=== PATIENT | male | born 1980 | race Caucasian/White ===

== ENCOUNTER 2018-05-23 21:34 | Emergency (ER) | payer OTHER ==
[~2018-05-23] VITALS: Ht 175.3 cm; Wt 103.3 kg
[2018-05-23 21:37] VITALS: BP 163/100; PULSE 79; RESP 19; Ht 175.3 cm; Wt 103.3 kg
[2018-05-24] MEDS ORDERED: KETOROLAC 60 MG INJ IM STA (01:56)
[2018-05-24] MEDS ORDERED: IBUP-1542 PO (01:58)
[2018-05-24] MEDS ORDERED: HYDR-4011 PO (01:58)
--- NOTE | 2018-05-24 02:17 | ERD ---
ER Documentation Chief Complaint Chief Complaint HEAD AND NECK PAIN [id number] ON/OFF HPI 31 several male presents with complaint of upper neck and lower head pain intermittent for the past 2 months. States that the headache is mostly on the left side of the head. States that his CT was done 1 month ago and the results within normal limits. States his been taking [id number] treatment is not sure what is called. Denies sudden onset, worse headache of life, fever, , rash, headache getting worse with change in position, headache initiated by exertion, MAHARAJ worse in the morning, MAHARAJ waking up patient at night, new neurological deficits, numbness, weakness, vision problems, tenderness to pal pation over temporal area, history of trauma, or possibility of CO2 poisoning. Denies past medical history. Denies allergies. Denies surgeries. Joesph alcohol, tobacco, drug use. Up to date on vaccines. ROS All systems reviewed and are negative except as per history of present illness. Medications Home Meds Active Scripts Hydrocodone/Acetaminophen ([place] 5-325 Tablet) 1 Each Tablet, 1 TAB PO Q6H PRN for PAIN, #10 TAB Prov:LOU GUIDRY 05/24/18 Ibuprofen* (Motrin*) 600 Mg Tab, 600 MG PO Q6 for headache, #30 TAB Prov:OLU GUIDRY 05/24/18 PMhx/Soc Medical and Surgical Hx: pt denies Medical Hx, pt denies Surgical Hx Hx Alcohol Use: No Hx Substance Use: No Hx Tobacco Use: Yes Smoking Status: Current every day smoker FmHx Family History: No diabetes, No coronary disease, No other Physical Exam Vitals Vital Signs Date Temp Pulse Resp B/P (MAP) Pulse Ox O2 O2 Flow FiO2 Time Delivery Rate 05/23/18 97.2 79 19 163/100 98 21:37 (121) Physical Exam Const: No acute distress Head: Atraumatic Eyes: Normal Conjunctiva. PERRLA. EOMs intact. ENT: Normal External Ears, Nose and Mouth. Neck: Full range of motion. No meningismus. Resp: Clear to auscultation bilaterally Cardio: Regular rate and rhythm, no murmurs Abd: Soft, non tender, non distended. Normal bowel sounds Skin: No petechiae or rashes Back: No midline or flank tenderness Ext: No cyanosis, or edema Neur: Awake and alert Psych: Normal Mood and Affect Neuro: M/S: Alert and oriented Face: EOMI, face and pharynx with normal sensation and function Motor: Normal strength throughout Sensation: Normal sensation throughout Speech: Normal Cerebel: Normal coordination Normal gait Normal finger to nose DTR: 2+ and symmetric upper/lower extremities Results 24 hrs Current Medications Medications Dose Sig/Fito Start Time Status Last (Trade) Ordered Route PRN Stop Time Admin Dose Reason Admin Ketorolac 60 mg ONCE STAT 05/24/18 DC 05/24/18 Tromethamine IM 01:56 02:01 (Toradol) 05/24/18 01:57 Procedures/MDM Patient's presentation is consistent with tension headaches. I advised patient that there is no indication for repeat CT at this time especially considering one was just taken 1 month ago and the results within normal limits. I also spent the patient that this needs to be managed with his physician on outpatient basis. Patient given Toradol in the ER discharged with ibuprofen and short course of [place] for breakthrough pain. I have low suspicion for intracranial hemorrhage, carotid dissection, elevated intracranial pressure, intracranial mass, aneurysm, meningitis, malignant hypertension, giant cell arteritis, carotid dissection, intracranial abscess, cerebral venous thrombosis, CO2 poisoning, or other emergent causes of headache based on patients history and exam. Patient discharged with strict ER precautions. Patient advised to follow up with PMD. All questions answered at discharge. Departure Diagnosis: Primary Impression: Tension headache Condition: Stable Patient Instructions: Tension Headaches, Self-Care for Headaches, Preventing Tension-type Headaches , Managing Tension-type Headache Symptoms Referrals: [facility] YOU HAVE RECEIVED A MEDICAL SCREENING EXAM AND THE RESULTS INDICATE THAT YOU DO NOT HAVE A CONDITION THAT REQUIRES URGENT TREATMENT IN THE EMERGENCY DEPARTMENT. FURTHER EVALUATION AND TREATMENT OF YOUR CONDITION CAN WAIT UNTIL YOU ARE SEEN IN YOUR DOCTORS OFFICE WITHIN THE NEXT 1-2 DAYS. IT IS YOUR RESPONSIBILITY TO MAKE AN APPOINTMENT FOR FOLOW-UP CARE. IF YOU HAVE A PRIMARY DOCTOR --you should call your primary doctor and schedule an appointment IF YOU DO NOT HAVE A PRIMARY DOCTOR YOU CAN CALL OUR PHYSICIAN REFERRAL HOTLINE AT IF YOU CAN NOT AFFORD TO SEE A PHYSICIAN YOU CAN CHOSE FROM THE FOLLOWING [facility] [address] [facility]. [facility] [address] [facility]. [facility] [address] [facility]. [facility] [address] [facility] [address] [facility]. [facility] [address] Additional Instructions: FOLLOW UP WITH YOUR PRIMARY CARE PHYSICIAN TOMORROW.Return to this facility if you are not improving as expected. LOU GUIDRY May 24, 2018 02:17
== END 2018-05-24 03:02 | disposition home or self-care (01) ==
LOC: FTE 21:34
DX: G44.209 Tension-type headache, unspecified, not intractable (principal); F17.210 Nicotine dependence, cigarettes, uncomplicated
CPT/HCPCS: 96372; J1885; Z7502